=== PATIENT | male | born 2000 | race Caucasian/White ===

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

== ENCOUNTER 2024-12-10 21:05 | Emergency (ER) | payer BC, OTHER ==
--- NOTE | 2024-12-10 21:49 | ED ---
Male Urogenital HPI - General Chief complaint: Urogenital Stated complaint: Groin Pain Time Seen by Provider: 12/10/24 21:16 Source: patient, RN notes reviewed Mode of arrival: ambulatory Limitations: no limitations - History of Present Illness Initial comments: This is a 24-year-old male presenting with father for right testicular pain (5/10) since 1800 this evening. Patient states pain started in left teste for pain migrated to the right teste. States he feels his right teste is elevated compared to the left. Patient describes pain as sharp and intermittent. Patient denies recent trauma or injury to region, fever, dysuria, hematuria or urethral discharge. Denies history of testicular torsion. MD Complaint: testicle pain Time: 18:00 Location: right testicle Severity scale (1-10): 5 Quality: sharp Consistency: intermittent Reports: denies other symptoms - Related Data Home Medications Medication Instructions Recorded Confirmed Acetaminophen [Tylenol Extra 1,000 mg PO Q6H PRN 09/26/17 09/26/17 Strength] Allergies Allergy/AdvReac Type Severity Reaction Status Date / Time amoxicillin Allergy Rash/Hives Verified 12/10/24 21:21 codeine Allergy Rash/Hives Verified 12/10/24 21:21 Review of Systems ROS Statement: Those systems with pertinent positive or pertinent negative responses have been documented in the HPI. ROS Other: All systems not noted in ROS Statement are negative. Past Medical History Past Medical History: No Reported History History of Any Multi-Drug Resistant Organisms: None Reported Additional Past Surgical History / Comment(s): nose surgery Past Psychological History: No Psychological Hx Reported Smoking Status: Vaper Past Alcohol Use History: Occasional Past Drug Use History: Marijuana General Exam Limitations: no limitations General appearance: alert, in no apparent distress Head exam: Present: atraumatic, normocephalic, normal inspection Eye exam: Present: normal appearance, PERRL, EOMI. Absent: scleral icterus, conjunctival injection, periorbital swelling ENT exam: Present: normal exam, mucous membranes moist Neck exam: Present: normal inspection. Absent: tenderness, meningismus, lymphadenopathy Respiratory exam: Present: normal lung sounds bilaterally. Absent: respiratory distress, wheezes, rales, rhonchi, stridor Cardiovascular Exam: Present: regular rate, normal rhythm, normal heart sounds. Absent: systolic murmur, diastolic murmur, rubs, gallop, clicks GI/Abdominal exam: Present: soft, normal bowel sounds. Absent: distended, tenderness, guarding, rebound, rigid exam: Present: testicular tenderness (Positive mild right testicular tenderness without edema.), circumcision, other (Bilateral cremasteric reflex intact). Absent: scrotal swelling, vertical testicular lie Extremities exam: Present: normal inspection, full ROM, normal capillary refill. Absent: tenderness, pedal edema, joint swelling, calf tenderness Back exam: Present: normal inspection Neurological exam: Present: alert, oriented X3, CN II-XII intact Psychiatric exam: Present: normal affect, normal mood Skin exam: Present: warm, dry, intact, normal color. Absent: rash Course Vital Signs 12/10/24 12/10/24 21:19 23:28 Temperature 98.2 F 98.1 F Pulse Rate 82 95 Respiratory 16 17 Rate Blood Pressure 171/100 128/76 O2 Sat by Pulse 98 98 Oximetry Medical Decision Making - Medical Decision Making Was pt. sent in by a medical professional or institution (, PA, [employer], urgent care, hospital, or long-term...) When possible be specific @ -No Did you speak to anyone other than the patient for history (EMS, parent, family, police, friend...)? What history was obtained from this source @ -Father provided small portion of HPI Did you review nursing and triage notes (agree or disagree)? Why? @ -I reviewed and agree with nursing and triage notes Were old charts reviewed (outside hosp., previous admission, EMS record, old EKG, old radiological studies, urgent care reports/EKG's, long-term records)? Report findings @ -No old charts were reviewed Differential Diagnosis (chest pain, altered mental status, abdominal pain women, abdominal pain men, vaginal bleeding, weakness, fever, dyspnea, syncope, hea dache, dizziness, GI bleed, back pain, seizure, CVA, palpatations, mental health, musculoskeletal)? @ -Testicular torsion, epididymitis, orchitis, varicocele, hydrocele, spermatocele, UTI, inguinal hernia, this is not an exhaustive list. EKG interpreted by me (3pts min.). @ -Not done X-rays interpreted by me (1pt min.). @ -None done CT interpreted by me (1pt min.). @ -None done U/S interpreted by me (1pt. min.). @ -Scrotal Doppler ultrasound revealed normal perfusion of bilateral testes and varicocele of left teste. What testing was considered but not performed or refused? (CT, X-rays, U/S, l abs)? Why? @ -None What meds were considered but not given or refused? Why? @ -Patient declined IM Toradol and p.o. Motrin and Tylenol for pain control. Did you discuss the management of the patient with other professionals (professionals i.e. , PA, [employer], lab, RT, psych nurse, protective services social worker, internal investigator, teacher, customs patrol officer, residential case manager)? Give summary @ -No Was smoking cessation discussed for >3mins.? @ -No Was critical care preformed (if so, how long)? @ -No Were there social determinants of health that impacted care today? How? (Homelessness, low income, unemployed, alcoholism, drug addiction, transportation, low edu. Level, literacy, decrease access to med. care, assisted, rehab)? @ -No Was there de-escalation of care discussed even if they declined (Discuss DNR or withdrawal of care, Hospice)? DNR status @ -No What co-morbidities impacted this encounter? (DM, HTN, Smoking, COPD, CAD, Cancer, CVA, ARF, Chemo, Hep., AIDS, mental health diagnosis, sleep apnea, morbid obesity)? @ -None Was patient admitted / discharged? Hospital course, mention meds given and route, prescriptions, significant lab abnormalities, going to OR and other pertinent info. @ -UA unremarkable. Urine sent for chlamydia and gonorrhea. Scrotal Doppler ultrasound revealed normal perfusion of bilateral testes and varicocele of left teste. Patient declined pain medication offered. Advise use of supportive un derwear and alternate Tylenol/Motrin every 4 hours for pain. Follow-up with urology for any ongoing or worsening symptoms. Discussed patient with Dr. Loya. Undiagnosed new problem with uncertain prognosis? @ -No Drug Therapy requiring intensive monitoring for toxicity (Heparin, Nitro, Insulin, Cardizem)? @ -No Were any procedures done? @ -No Diagnosis/symptom? @ -Testicular pain, varicocele Acute, or Chronic, or Acute on Chronic? @ -Acute Uncomplicated (without systemic symptoms) or Complicated (systemic symptoms)? @ -Uncomplicated Side effects of treatment? @ -No Exacerbation, Progression, or Severe Exacerbation? @ -No Poses a threat to life or bodily function? How? (Chest pain, [place], [place], pneumonia, PE, COPD, DKA, ARF, appy, cholecystitis, CVA, Diverticulitis, Homicidal, Suicidal, threat to staff... and all critical care pts) @ -No - Lab Data Lab Results 12/10/24 Range/Units 21:48 Urine Color Colorless Urine Appearance Clear (Clear) Urine pH 6.5 (5.0-8.0) Ur Specific [place] 1.008 (1.001-1.035) Urine Protein Negative (Negative) Urine Glucose (UA) Negative (Negative) Urine Ketones Negative (Negative) Urine Blood Negative (Negative) Urine Nitrite Negative (Negative) Urine Bilirubin Negative (Negative) Urine Urobilinogen <2.0 (<2.0) mg/dL Ur Leukocyte Esterase Negative (Negative) Disposition Clinical Impression: Right testicular pain, Varicocele Disposition: HOME SELF-CARE Condition: Good Instructions (If sedation given, give patient instructions): Testicle Pain (ED) Additional Instructions: Supportive underwear/jockstrap recommended. Alternate Tylenol/Motrin every 4 hours for pain. Follow-up with urology for any ongoing or worsening symptoms. Is patient prescribed a controlled substance at d/c from ED?: No Referrals: Kennedy Gibson MD [Primary Care Provider] - 1-2 days Time of Disposition: 23:09
[2024-12-10 22:14] LABS: Appearance,Urine Clear (Clear); Bilirubin,Urine Negative (Negative); Blood,Urine Negative (Negative); Color,Urine Colorless; Glucose,Urine (UA) Negative (Negative); Ketones,Urine Negative (Negative); Leukocyte Esterase,Urine Negative (Negative); Nitrite,Urine Negative (Negative); PH, Urine 6.5 (5.0-8.0); Protein,Urine Negative (Negative); Specific Gravity,Urine 1.008 (1.001-1.035); Urobilinogen,Urine <2.0 mg/dL (<2.0)
[2024-12-10 23:29] VITALS: BP 128/76; PULSE 95; RESP 17; TEMP 98.1
--- NOTE | 2024-12-10 23:32 | US ---
EXAM: US Scrotum CLINICAL HISTORY: ITS.REASON US Reason: Right testicular pain TECHNIQUE: Real-time ultrasound of the scrotum with color Doppler and image documentation. COMPARISON: No relevant prior studies available. FINDINGS: Right testicle: Right testicle measures 5.0 x 2.5 x 3.4 cm. Normal blood flow. No suspicious lesion. No torsion. Left testicle: Left testicle measures 4.8 x 2.6 x 3.2 cm. Normal blood flow. No suspicious lesion. No torsion. Epididymides: Unremarkable. Scrotum: No hydrocele. Mild varicocele on the left. IMPRESSION: 1. No testicular torsion. 2. Mild varicocele on the left.
== END 2024-12-10 23:29 | disposition home or self-care (01) ==
LOC: EC 21:05
DX: I86.1 Scrotal varices (principal); F17.290 Nicotine dependence, other tobacco product, uncomplicated; Z88.5 Allergy status to narcotic agent; Z88.0 Allergy status to penicillin
CPT/HCPCS: 76870; 81003; 87491; 87591; 93975; 99284